=== PATIENT | male | born 1975 | race African-American/Black ===

== ENCOUNTER 2018-12-27 14:18 | Inpatient (IN) ==
[2018-12-27] MEDS ORDERED: SODIUM CHLORIDE 0.9% 1,000 ML IV STA (15:14)
[2018-12-27] MEDS ORDERED: PIPERACILLIN/TAZOBACTAM 3,375 MG in SODIUM CHLORIDE 0.9% 100 ML IV STA (15:15)
[2018-12-27 15:51] LABS: Basophils # 0.1 10*3/uL (0.0-0.2); Eosinophils % 0.6 % (0.00-10.9); Hematocrit 43.7 VOL% (42.0-52.0); Hemoglobin 14.9 GM/DL (14.0-18.0); Immature Granulocytes % 0.2 %; Immature Granulocytes Absolute 0.01 #; Lymphocytes # 1.3 10*3/uL (1.4-4.0); Lymphocytes % 24.8 % (21.2-54.2); Mean Corpuscular HGB Conc 34.1 GM/DL (32-36); Mean Corpuscular Volume 98.6 FL (87-102); Mean Platelet Volume 8.9 FL (9.6-12.0); Monocytes % 8.1 % (1.7-12.7); Neutrophils % 65.3 % (38.7-73.9); Platelet Count 154 T/CUMM (130-400); Red Blood Count 4.43 MC/CUMM (3.8-5.5); Red Cell Distribution Width 12.5 % (9.3-17.3); White Blood Count 5.1 T/CUMM (4-12)
[2018-12-27 16:02] LABS: Calcium 9.3 MG/DL (8.5-10.1); Osmolality,Calculated 277.1 MOS/KG (273-304)
[2018-12-27] MEDS ORDERED: NICOTINE 21 MG/24 HR PATCH TRANSDERM PRN (16:38)
[2018-12-27] MEDS ORDERED: ONDANSETRON 4 MG/2 ML VIAL IV PRN ×2 (16:38→17:57)
[2018-12-27] MEDS ORDERED: BISACODYL 5 MG TABLET PO PRN (16:38)
[2018-12-27] MEDS ORDERED: ACETAMINOPHEN 325 MG TABLET PO PRN ×2 (16:38→17:57)
[2018-12-27] MEDS ORDERED: hydrALAZINE 20 MG/1 ML VIAL IV PRN (16:40)
[2018-12-27] MEDS ORDERED: IBUPROFEN 600 MG TABLET PO SCH (17:00)
[2018-12-27] MEDS: PIPERACILLIN/TAZOBACTAM 3,375 MG in SODIUM CHLORIDE 0.9% 100 ML IV SCH ×2 (17:09→18:43)
[2018-12-27] MEDS: SODIUM CHLORIDE 0.9% 1,000 ML IV SCH ×2 (17:10→22:33)
[2018-12-27] MEDS ORDERED: GLUCAGON 1 MG VIAL IM PRN (17:57)
[2018-12-27] MEDS ORDERED: DEXTROSE 50% 25 GM/50 ML VIAL IV PRN (17:57)
[2018-12-27] MEDS: INSULIN REGULAR 100 UNIT/ML SUBCUT SCH (19:08)
[2018-12-27] MEDS: HEPARIN 5,000 UNIT/1 ML VIAL SUBCUT SCH (19:08)
[2018-12-27] MEDS ORDERED: tiZANidine 4 MG TABLET PO SCH (21:00)
[2018-12-27] MEDS ORDERED: VANCOMYCIN INJ 1,750 MG in SODIUM CHLORIDE 0.9% 500 ML IV ONE (21:00)
[2018-12-27] MEDS: DOCUSATE SODIUM 100 MG CAPSULE PO SCH (22:00)
[2018-12-27] MEDS: CARVEDILOL 6.25 MG TABLET PO SCH (22:00)
[2018-12-27] MEDS: INSULIN GLARGINE 100 UNIT/ML SUBCUT SCH (22:06)
[2018-12-28] MEDS: INSULIN REGULAR 100 UNIT/ML SUBCUT SCH ×4 (01:08→17:43)
[2018-12-28] MEDS: HEPARIN 5,000 UNIT/1 ML VIAL SUBCUT SCH ×3 (02:14→17:43)
[2018-12-28 04:00] LABS: Basophils % 0.9 % (0.0-0.8); Eosinophils # 0.1 10*3/uL (0.0-0.87); Eosinophils % 2.3 % (0.00-10.9); Hematocrit 37.7 VOL% (42.0-52.0); Hemoglobin 12.5 GM/DL (14.0-18.0); Immature Granulocytes % 0.2 %; Immature Granulocytes Absolute 0.01 #; Lymphocytes # 1.6 10*3/uL (1.4-4.0); Mean Corpuscular HGB Conc 33.2 GM/DL (32-36); Mean Corpuscular Volume 101.1 FL (87-102); Monocytes % 8.1 % (1.7-12.7); Neutrophils % 50.5 % (38.7-73.9); Platelet Count 119 T/CUMM (130-400); Red Blood Count 3.73 MC/CUMM (3.8-5.5); Red Cell Distribution Width 12.4 % (9.3-17.3); White Blood Count 4.3 T/CUMM (4-12)
[2018-12-28 04:26] LABS: Albumin 2.8 G/DL (3.4-5.0); Bilirubin,Total 0.6 MG/DL (0.2-1.0); Calcium 8.2 MG/DL (8.5-10.1); Osmolality,Calculated 278.8 MOS/KG (273-304); Risk Ratio 3.9; Thyroid Stimulating Hormone 6.85 uIU/ml (0.358-3.74); Total Protein 6.3 G/DL (6.4-8.3); VLDL CHOLESTEROL 81.6 MG/DL
[2018-12-28] MEDS: PIPERACILLIN/TAZOBACTAM 3,375 MG in SODIUM CHLORIDE 0.9% 100 ML IV SCH ×3 (05:34→15:31)
[2018-12-28] MEDS: DOCUSATE SODIUM 100 MG CAPSULE PO SCH ×2 (08:56→21:10)
[2018-12-28] MEDS: METOPROLOL SUCCINATE XL 25 MG TABLET PO SCH (08:57)
[2018-12-28] MEDS: PANTOPRAZOLE 40 MG TABLET PO SCH (08:57)
[2018-12-28] MEDS: CARVEDILOL 6.25 MG TABLET PO SCH ×2 (08:57→21:10)
[2018-12-28] MEDS: hydroCHLOROthiazide 25 MG TABLET PO SCH (08:57)
[2018-12-28] MEDS ORDERED: PANTOPRAZOLE 40 MG TABLET PO SCH (09:00)
[2018-12-28] MEDS ORDERED: METOPROLOL SU HYDROCHLOROTHIAZ PO SCH (09:00)
[2018-12-28] MEDS: VANCOMYCIN INJ 1,500 MG in SODIUM CHLORIDE 0.9% 250 ML IV SCH ×2 (09:09→21:11)
[2018-12-28] MEDS: SODIUM CHLORIDE 0.9% 1,000 ML IV SCH ×2 (11:38→16:38)
[2018-12-28] MEDS ORDERED: LIDOCAINE 1% 20 ML VIAL ONE (11:40)
[2018-12-28] MEDS ORDERED: PROPOFOL 200 MG/20 ML VIAL IV ONE (13:26)
[2018-12-28] MEDS ORDERED: MIDAZOLAM 2 MG/2 ML VIAL ONE (13:26)
[2018-12-28] MEDS ORDERED: SEVOFLURANE 1 UNIT/15 MINUTE INH ONE (13:26)
[2018-12-28] MEDS ORDERED: fentaNYL 100 MCG/2 ML VIAL ONE (13:27)
[2018-12-28] MEDS ORDERED: ATORVASTATIN 80 MG TABLET PO SCH (21:00)
[2018-12-28] MEDS: INSULIN GLARGINE 100 UNIT/ML SUBCUT SCH (21:10)
[2018-12-29] MEDS: INSULIN REGULAR 100 UNIT/ML SUBCUT SCH ×3 (00:50→12:24)
[2018-12-29] MEDS: PIPERACILLIN/TAZOBACTAM 3,375 MG in SODIUM CHLORIDE 0.9% 100 ML IV SCH ×2 (01:27→10:00)
[2018-12-29] MEDS: HEPARIN 5,000 UNIT/1 ML VIAL SUBCUT SCH ×2 (01:28→09:23)
[2018-12-29] MEDS: SODIUM CHLORIDE 0.9% 1,000 ML IV SCH (02:48)
[2018-12-29] MEDS ORDERED: diphenhydrAMINE 50 MG/1 ML VIAL IV ONE (03:09)
[2018-12-29] MEDS ORDERED: FAMOTIDINE INJ 40 MG in SODIUM CHLORIDE 0.9% 100 ML IV ONE (03:10)
[2018-12-29] MEDS ORDERED: FAMOTIDINE 20 MG/2 ML VIAL IV ONE (03:30)
[2018-12-29 04:45] LABS: Basophils % 0.8 % (0.0-0.8); Eosinophils # 0.1 10*3/uL (0.0-0.87); Eosinophils % 2.7 % (0.00-10.9); Hematocrit 40.6 VOL% (42.0-52.0); Hemoglobin 13.6 GM/DL (14.0-18.0); Immature Granulocytes % 0.3 %; Immature Granulocytes Absolute 0.01 #; Lymphocytes # 1.4 10*3/uL (1.4-4.0); Lymphocytes % 36.4 % (21.2-54.2); Mean Corpuscular HGB Conc 33.5 GM/DL (32-36); Mean Corpuscular Volume 99.5 FL (87-102); Monocytes % 6.6 % (1.7-12.7); Neutrophils % 53.2 % (38.7-73.9); Platelet Count 118 T/CUMM (130-400); Red Blood Count 4.08 MC/CUMM (3.8-5.5); Red Cell Distribution Width 12.2 % (9.3-17.3); White Blood Count 3.8 T/CUMM (4-12)
[2018-12-29] MEDS ORDERED: VANCOMYCIN INJ 1,500 MG in SODIUM CHLORIDE 0.9% 500 ML IV SCH (09:00)
[2018-12-29] MEDS: DOCUSATE SODIUM 100 MG CAPSULE PO SCH (09:21)
[2018-12-29] MEDS: PANTOPRAZOLE 40 MG TABLET PO SCH (09:22)
[2018-12-29] MEDS: hydroCHLOROthiazide 25 MG TABLET PO SCH (09:22)
[2018-12-29] MEDS: METOPROLOL SUCCINATE XL 25 MG TABLET PO SCH (09:22)
[2018-12-29] MEDS: CARVEDILOL 6.25 MG TABLET PO SCH (09:22)
[2018-12-29 11:45] VITALS: BP 131/84
== END 2018-12-29 12:30 | disposition home or self-care (01) | DRG 264 ==
LOC: N.ED 14:18 → N.EDINP 16:13 → N.3E 17:25
PROVIDERS: ADMIT Surgery; ATTEND Surgery